=== PATIENT | male | born 1935 | race Caucasian/White ===

== ENCOUNTER 2016-09-13 14:08 | Inpatient (IN) | payer MEDICARE ==
[~2016-09-13] VITALS: Ht 175.3 cm; Wt 78.1 kg
[2016-09-14] MEDS ORDERED: VITA500T49 PO (11:31)
[2016-09-14] MEDS ORDERED: COQ-100C2 PO (11:31)
[2016-09-14] MEDS ORDERED: VITA10003 PO (11:31)
[2016-09-14] MEDS ORDERED: TAMS0.4C4 PO (11:31)
[2016-09-14] MEDS ORDERED: FISH120014 PO (11:31)
[2016-09-14] MEDS ORDERED: ASPI1TAB69 PO (11:31)
[2016-09-14] MEDS ORDERED: FOLI400T PO (11:31)
[2016-09-21] VITALS (8 sets, daily range): BP systolic 126–138; BP diastolic 59–68; PULSE 77–102; RESP 16–18; TEMP 97.4–98.5; O2SAT 97–98
--- NOTE | 2016-09-21 06:55 | PD.HP.UP ---
H&P Update Note The Pre-Admit History and Physical Examination regarding the above named patient was reviewed (including, but not limited to, vital signs, heart, lungs, co-morbid conditions), and upon re-examination it is noted that: the patient's condition has not significantly changed since the last examination. Ginna Franklin MD Sep 21, 2016 06:55
[2016-09-21] MEDS ORDERED: ceFAZolin 2 GM PREMIX 50 ML IV SCH (07:00)
[2016-09-21] MEDS ORDERED: METOPROLOL TARTRATE 25 MG TAB PO PRN (07:00)
[2016-09-21] MEDS ORDERED: DEXT 5%-NACL 0.9% 1000 ML INJ 1,000 ML IV SCH (07:00)
[2016-09-21] MEDS ORDERED: LACTATED RINGER'S 1000 ML IV SCH (07:00)
[2016-09-21] MEDS ORDERED: SODIUM CHLORID 0.9% 500 ML IV SCH (07:00)
[2016-09-21] MEDS ORDERED: METRONIDAZOLE 500 MG/100 ML ISONTONIC SOLN IV SCH (07:00)
[2016-09-21] MEDS ORDERED: INSULIN HUMAN REGULAR 1,000 UNITS/10 ML VIAL SQ PRN (07:00)
[2016-09-21] MEDS ORDERED: HEPARIN SODIUM - SQ 10,000 UNITS/ML VIAL SQ SCH (07:15)
[2016-09-21] MEDS ORDERED: ZANT150T2 PO (07:35)
[2016-09-21] MEDS ORDERED: MIDAZOLAM HCL 2 MG/2 ML VIAL ONE (08:36)
[2016-09-21] MEDS ORDERED: DEXAMETHASONE SOD PHOS 4 MG/ML VIAL ONE (08:36)
[2016-09-21] MEDS ORDERED: FAMOTIDINE 20 MG/2 ML VIAL ONE (08:36)
[2016-09-21] MEDS ORDERED: PHENYLEPH/NS 1000 MCG/10 ML SYR IV ONE (10:55)
[2016-09-21] MEDS ORDERED: PROPOFOL 200 MG/20 ML AMP IV ONE (10:55)
[2016-09-21] MEDS ORDERED: LACTATED RINGER'S 1000 ML INJ 4,000 ML IV ONE (10:55)
[2016-09-21] MEDS ORDERED: NEOSTIGMINE 3 MG/3 ML SYR IV ONE (10:55)
[2016-09-21] MEDS ORDERED: ePHEDrine/NS 50 MG/5 ML SYR IV ONE (10:55)
[2016-09-21] MEDS ORDERED: ONDANSETRON HCL 4 MG/2 ML VIAL IV PUSH ONE (10:55)
[2016-09-21] MEDS ORDERED: ceFAZolin INJ 1,000 MG VIAL IV ONE (13:35)
[2016-09-21] MEDS ORDERED: fentaNYL CITRATE 250 MCG/5 ML AMP ONE (15:18)
[2016-09-21] MEDS ORDERED: POTASSIUM CHLOR 20 MEQ PREMIX 100 ML IV PRN (16:15)
[2016-09-21] MEDS ORDERED: ENALAPRILAT 2.5 MG/2 ML VIAL IV PRN (16:15)
[2016-09-21] MEDS ORDERED: ACETAMINOPHEN/HYDROcodone 325 MG/5 MG TAB PO PRN ×2 (16:15)
[2016-09-21] MEDS ORDERED: KETOROLAC TROMETHAMINE 30 MG/ML (IVP) VIAL IVP PRN (16:15)
[2016-09-21] MEDS ORDERED: diphenhydrAMINE HCL 50 MG/ML VIAL IV PRN (16:15)
[2016-09-21] MEDS ORDERED: NALOXONE HCL 0.4 MG/ML AMP IV PRN ×2 (16:15)
[2016-09-21] MEDS ORDERED: POTASSIUM CHLOR 40 MEQ PREMIX 100 ML IV-CENTRAL PRN (16:15)
[2016-09-21] MEDS ORDERED: SODIUM CHLORIDE 0.9% FLUSH 5 ML FLUSH IVF PRN (16:15)
[2016-09-21] MEDS ORDERED: Post-op Orders (for Pharmacy) MISC XX ONE (16:15)
[2016-09-21] MEDS ORDERED: BENZOCAINE 6 MG/MENTHOL 10 MG LOZENGE SUCK-ON PRN (16:15)
[2016-09-21] MEDS ORDERED: ACETAMINOPHEN 325 MG TAB PO PRN (16:15)
[2016-09-21] MEDS ORDERED: MORPHINE SULFATE 4 MG/ML INJ ONE (16:27)
[2016-09-21 16:56] LABS: AUTOMATED NEUTROPHIL # 12.7 TH/MM3 (1.8-7.7); BASOPHIL % 0.1 % (0.0-2.0); HEMATOCRIT 37.2 % (39.0-51.0); HEMO FLAGS DIFF FINAL; LYMPH % 4.6 % (9.0-44.0); LYMPHOCYTE # 0.7 TH/MM3 (1.0-4.8); MEAN CELL VOLUME 85.3 FL (80.0-100.0); MONO % 6.9 % (0.0-8.0); NEUT % 88.4 % (16.0-70.0); PLATELET COUNT 183 TH/MM3 (150-450); RED BLOOD COUNT 4.36 MIL/MM3 (4.50-5.90); RED CELL DISTRIBUTION WIDTH 13.6 % (11.6-17.2); WHITE BLOOD COUNT 14.4 TH/MM3 (4.0-11.0)
[2016-09-21] MEDS ORDERED: DO NOT ADM ANY ANTICOAGULANT DRUGS XX PRN (17:00)
[2016-09-21] MEDS: D5-NS + KCL 20 MEQ INJ 1,000 ML IV SCH ×2 (17:08→23:40)
[2016-09-21] MEDS: PANTOPRAZOLE SODIUM 40 MG VIAL IVP SCH (17:10)
[2016-09-21] MEDS: HYDROmorphone HCL PCA 6 MG/30 ML IV SCH (17:12)
[2016-09-21 17:20] LABS: POTASSIUM 3.9 MEQ/L (3.5-5.1)
[2016-09-21] MEDS: metroNIDAZOLE 500 MG INJ 100 ML IV SCH (17:30)
[2016-09-21] MEDS: SODIUM CHLORIDE 0.9% FLUSH 5 ML FLUSH IVF SCH (21:00)
[2016-09-21] MEDS: PCA - TOTAL MG DILAUDID DELIVERED PER SHIFT OTHER SCH (22:00)
[2016-09-22] VITALS (26 sets, daily range): BP systolic 114–143; BP diastolic 56–69; PULSE 69–94; RESP 16–20; TEMP 97.8–99.4; O2SAT 92–100
[2016-09-22] MEDS: D5-NS + KCL 20 MEQ INJ 1,000 ML IV SCH ×3 (01:46→19:51)
[2016-09-22] MEDS: metroNIDAZOLE 500 MG INJ 100 ML IV SCH ×2 (01:46→10:30)
[2016-09-22] MEDS: ONDANSETRON HCL 4 MG/2 ML VIAL IV PRN (04:11)
[2016-09-22] MEDS: PCA - TOTAL MG DILAUDID DELIVERED PER SHIFT OTHER SCH ×3 (05:33→19:51)
[2016-09-22 06:30] LABS: BICARBONATE 28.2 MEQ/L (21.0-32.0)
[2016-09-22 06:40] LABS: AUTOMATED NEUTROPHIL # 7.7 TH/MM3 (1.8-7.7); BASOPHIL % 0.3 % (0.0-2.0); EOSINOPHIL % 0.1 % (0.0-4.0); HEMATOCRIT 35.8 % (39.0-51.0); HEMO FLAGS DIFF FINAL; LYMPH % 12.7 % (9.0-44.0); LYMPHOCYTE # 1.3 TH/MM3 (1.0-4.8); MEAN CELL VOLUME 86.4 FL (80.0-100.0); MEAN CORPUSCULAR HEMOGLOBIN 29.5 PG (27.0-34.0); MEAN CORPUSCULAR HGB CONC 34.1 % (32.0-36.0); MONO % 10.6 % (0.0-8.0); NEUT % 76.3 % (16.0-70.0); PLATELET COUNT 182 TH/MM3 (150-450); RED BLOOD COUNT 4.15 MIL/MM3 (4.50-5.90); WHITE BLOOD COUNT 10.1 TH/MM3 (4.0-11.0)
[2016-09-22] MEDS: PANTOPRAZOLE SODIUM 40 MG VIAL IVP SCH ×2 (08:12→19:50)
[2016-09-22] MEDS: SODIUM CHLORIDE 0.9% FLUSH 5 ML FLUSH IVF SCH ×2 (08:13→19:51)
--- NOTE | 2016-09-22 11:42 | HHI.PR ---
Subjective Remarks No N or V. No BMs. Left ureteral cath removed by me. Objective Vital Signs Date Time Temp Pulse Resp B/P Pulse Ox O2 Delivery O2 Flow Rate FiO2 09/22/16 07:30 16 09/22/16 07:27 99 Nasal Cannula 2.00 09/22/16 07:25 98.9 71 16 114/57 96 09/22/16 07:25 71 09/22/16 06:00 69 09/22/16 05:33 16 09/22/16 05:00 74 09/22/16 04:00 78 09/22/16 03:09 97.8 79 16 117/56 98 09/22/16 03:00 75 09/22/16 02:00 77 09/22/16 01:00 90 09/22/16 00:00 98.3 79 16 142/69 100 09/22/16 00:00 81 09/21/16 23:00 94 09/21/16 22:00 79 09/21/16 22:00 18 09/21/16 21:00 102 09/21/16 20:00 97.4 87 18 134/65 98 09/21/16 20:00 80 09/21/16 19:00 79 09/21/16 18:01 77 09/21/16 17:56 98.3 83 16 126/59 98 09/21/16 17:15 97.8 79 17 130/67 98 Nasal Cannula 3 09/21/16 17:12 16 09/21/16 17:00 74 17 126/62 98 Nasal Cannula 3 09/21/16 16:45 76 15 136/68 95 Nasal Cannula 3 09/21/16 16:30 82 15 129/68 95 Nasal Cannula 3 09/21/16 16:18 97.8 93 15 134/69 93 Nasal Cannula 3 I/O 09/21/16 09/21/16 09/21/16 09/22/16 09/22/16 09/22/16 07:00 15:00 23:00 07:00 15:00 23:00 Intake Total 4000 ml 1806 ml Output Total 950 ml 1330 ml Balance 3050 ml 476 ml Intake Oral 620 ml IV Total 500 ml 1186 ml Other 3500 ml Output Urine Total 850 ml 1150 ml Drainage Total 180 ml Estimated Blood Loss 100 ml # Bowel Movements 0 Result Diagram: 09/22/1632 09/22/1632 Objective Remarks Abd: moderate distention, probably secondary to CO2 I&Os and Labs:OK Medications and IVs Stable POD#1. Less hematuria To 7 North. FLD,Decrease IVs Juan Alberto Cabrales MD Sep 22, 2016 11:42
[2016-09-22] MEDS: HEPARIN SODIUM - SQ 10,000 UNITS/ML VIAL SQ SCH (16:15)
[2016-09-22] MEDS ORDERED: ALUMINUM/MAGNESIUM/SIMETH 30 ML CUP PO PRN (19:30)
--- NOTE | 2016-09-22 20:14 | MP ---
cc: PINO AVELAR MD DATE OF SURGERY 09/21/16 SURGEON Rosalia Avelar MD INDICATIONS FOR PROCEDURE Consulted intraoperatively to pass bilateral ureteral catheters to aid in visualization of this patient's ureters during his colorectal procedure. PROCEDURE IN DETAIL I proceeded with cystoscopy and placement of bilateral ureteral catheters as follows: Initially cystoscopic evaluation was performed utilizing the rigid cystoscope with the 22-Niuean sheath and 30 degree lens. The urethra was patent without stricture formation. The prostatic urethra was markedly obstructed with enlargement if the lateral lobes and significant enlargement to the median lobe. Further passage of the cystoscope within the urinary bladder revealed the bladder to be markedly trabeculated with diverticula and cellule formation. I did attempt to identify the source of the fistula tract. There was a questionable site noted involving the dome of the bladder just to the left of the midline. However, I could not ascertain that this was the fistula site with certainty. Next, I proceeded with placing bilateral ureteral catheters. Initially, the left ureteral orifice was identified. A sensor 0.035 wire was advanced up the patient's left ureter until some resistance was felt. A 6-Niuean open-ended catheter was then advanced in a cephalad direction 25 cm. With the catheter in place, the guidewire was withdrawn and reintroduced through a secondary site via the cystoscope. In similar fashion, the contralateral side was accomplished. With both catheters in place, the bladder was drained of all irrigant fluid. The wire and cystoscope were withdrawn. A 16-Niuean 10 mL Olmedo catheter was then placed and both ureteral catheters were anchored to the Olmedo via a connector. All three catheters were then placed to gravity drainage. The patient tolerated the procedures without complications. Pino Avelar MD BPS/ /10:25 AM /8:01 PM
[2016-09-23] MEDS: D5-NS + KCL 20 MEQ INJ 1,000 ML IV SCH ×3 (03:09→21:16)
[2016-09-23] MEDS: HEPARIN SODIUM - SQ 10,000 UNITS/ML VIAL SQ SCH ×2 (03:09→15:08)
[2016-09-23] MEDS: HYDROmorphone HCL PCA 6 MG/30 ML IV SCH (03:11)
[2016-09-23 03:18] VITALS: BP 157/83; PULSE 82; RESP 18; TEMP 97.9; O2SAT 95
[2016-09-23] MEDS: PCA - TOTAL MG DILAUDID DELIVERED PER SHIFT OTHER SCH ×3 (04:13→22:00)
[2016-09-23 04:46] LABS: BICARBONATE 27.4 MEQ/L (21.0-32.0); POTASSIUM 3.7 MEQ/L (3.5-5.1)
[2016-09-23 04:54] LABS: AUTOMATED NEUTROPHIL # 8.9 TH/MM3 (1.8-7.7); BASOPHIL % 0.2 % (0.0-2.0); EOSINOPHIL % 0.1 % (0.0-4.0); HEMATOCRIT 37.3 % (39.0-51.0); HEMO FLAGS DIFF FINAL; LYMPH % 11.2 % (9.0-44.0); LYMPHOCYTE # 1.2 TH/MM3 (1.0-4.8); MEAN CORPUSCULAR HEMOGLOBIN 29.1 PG (27.0-34.0); MEAN CORPUSCULAR HGB CONC 33.8 % (32.0-36.0); MONO % 8.8 % (0.0-8.0); NEUT % 79.7 % (16.0-70.0); PLATELET COUNT 187 TH/MM3 (150-450); RED BLOOD COUNT 4.34 MIL/MM3 (4.50-5.90); RED CELL DISTRIBUTION WIDTH 13.8 % (11.6-17.2); WHITE BLOOD COUNT 11.2 TH/MM3 (4.0-11.0)
--- NOTE | 2016-09-23 06:09 | MP ---
cc: LILLY WRIGHT M.D., RENEE MERRELL, MATTHEW M. M.D. DATE OF SURGERY: 09/21/2016 PREOPERATIVE DIAGNOSIS: Colovesical fistula. Diverticulitis. POSTOPERATIVE DIAGNOSIS: Colovesical fistula. Diverticulitis. Adhesions. SURGEON: Lilly Wright MD. MENAGERIE CARETAKER: Marilu OPERATION 1. Robotic lysis of adhesions. 2. Robotic takedown of splenic flexure. 3. Robotic low anterior resection. ANESTHESIA General per ET tube ESTIMATED BLOOD LOSS 100 cc OPERATIVE INDICATIONS The patient is a 81-year-old male with symptomatic colovesical fistula. OPERATIVE FINDINGS Liver appeared normal. The proximal sigmoid colon was adherent to the dome of the bladder, with an obvious fistula upon dissection. He had multiple diverticula all through his descending colon as well, necessitating a larger than typical resection in order to get clean bowel to perform our anastomosis. OPERATIVE REPORT The patient was brought to the operating room, and placed in the supine position. After induction of general anesthesia, the patient was placed in Flavio stirrups and all bony prominences were carefully padded. The skin of the anterior abdominal wall, as well as the perineal area, was then prepped and draped in the usual sterile fashion. Dr. Avelar then came in and performed cystoscopy with placement of bilateral ureteral catheters, please see his operative note for details. Of note, he did have some problem getting through some fairly significant prostatic hypertrophy and there was ongoing bleeding from the Olmedo throughout the case. A site was then chosen for the camera, being located 2 cm to the right and above the umbilicus. A 10/12 trocar was placed at this site under direct vision using the laparoscope. CO2 insufflation was then undertaken. A brief abdominal survey was performed. The sigmoid colon was noted to be adherent to the bladder at the presumed site of the fistula. The remainder of the colon showed no visible abnormalities. He did have some ectatic vessels. There was nothing else visibly abnormal. The remainder of the ports were then placed as follows: the #1 port, a 10/12, was placed just inside the right anterior superior iliac spine, and an assist port was placed equal distance between the #1 and the camera port, just under the right costal margin. The #3, a Da Dano port, was placed in line with the umbilicus in the left anterior axillary line, and the #2 port was placed two fingerbreadths above the umbilical line, in the left midclavicular line. The patient was hydroplaned with head down and slightly to the right, and the small bowel was brought up and out of the pelvis and to the right. The sigmoid colon was retracted down and to the left. A window was made in the peritoneum. Dissection was continued in this plane posterior to the vessels until the left ureter was clearly identified and swept away from the specimen. Dissection continued laterally until we reached the level of the pelvic sidewall. A window was then made cephalad to the vessels and the vessels were dissected free circumferentially. A white load of echelon Endo stapler was then placed across the vasculature. This was closed, held for 30 seconds, fired and removed. Dissection then continued posterior to the rectum, down to the level of the mid rectum. The sigmoid colon was then carefully dissected free from the lateral pelvic sidewall using electrocautery, until we had nice mobility of the sigmoid, proximal rectum and distal descending colon. At this point I felt that I had enough length to come down into the pelvis. A sponge stick was then placed into the rectum, and a site was chosen for the division of the rectum on the upper rectum. The mesentery at this level was divided using the harmonic scalpel and an echelon Endo stapler was placed across the bowel at this level. This was closed, held for 30 seconds fired and removed. The proximal bowel came down nicely to the rectal stump, and we proceeded with the open portion of the procedure. The robot was undocked. A 12 to 15 cm transverse incision was made in the suprapubic area. Using electrocautery, dissection was carried down to the fascia of the anterior abdominal wall, which was split. The medial fibers of the rectus abdominis muscle were then divided. Using electrocautery, the posterior fascia/peritoneum was then opened the length of the skin incision. The 33 EEA stapler was attempted to be advanced through the rectal stump, but there was an area of tightness we could not get it through, so we did dissect back an additional 3-4 cm and repeated the stapler, removing an additional 3-4 cm. After placing the wound protector the more distal portion of the bowel was then removed. At this point the stapler was then placed in the anus and advanced to the rectal stump. It did come nicely but I noticed that there was a small tear and I decided that just proximal to the staple line, we needed to go with the smaller stapler and go back an additional 3-4 cm. The proximal stapled end of the bowel was grasped and pulled out through the wound protector. A site was then chosen for proximal division of the bowel. The mesentery at this level was divided and ligated using 0-Vicryl ties, and the pursestring stapling device was placed across the bowel at this level. The distal bowel was amputated, and taken to the back table where it was later opened and diverticulitis was confirmed. Unfortunately upon examining the proximal bowel, he had multiple diverticuli throughout, making it very difficult to find an area that would be appropriate for anastomosis. After evaluating the remainder of the bowel, I did see that another 4-5 cm proximal to this there was some bowel with a less diverticuli. Unfortunately, taking this additional length of bowel would make it so that we did not have enough length for tension-free anastomosis, so I elected to reset the robot. The robot was docked again and the splenic flexure was then dissected free using electrocautery, until we had adequate length of bowel. While the robot was docked, we also dissected down past the small tear on the rectum to allow the more distal division of the rectum. At this point we were lower than the peritoneal reflection. The robot was again undocked and the contour stapler was placed across the distal rectum just distal to the previous small tear and the small rim of tissue was removed. A site was chosen for proximal division of the bowel, about 8 cm proximal to the previous resection margin. The mesentery at this level was then divided and ligated using 0 Vicryl ties and a second pursestring stapling device was sutured across the bowel at this level. The bowel was amputated and the anvil from the 29 EEA stapler was then placed into the cut of the bowel. The previously placed pursestring suture was secured. One small diverticulum needed to be sutured up around the shaft of the stapler but otherwise the bowel looked healthy and appropriate for anastomosis. The 29 EEA stapler was advanced through the rectum up to rectal stump without difficulty. The spike was advanced posterior to the staple line. The anvil was then into the spike, being careful that the bowel was not twisted. The stapler was then closed, held for 30 seconds, fired, and removed. A small amount of warm normal saline was placed in the pelvis. The proximal bowel was occluded with digital pressure. Air was insufflated to the extent possible into the rectum with no sign of any leakage noted. The air was desufflated to the extent possible, and the saline was suctioned out of the pelvis. A EBONY drain was placed through the left lower quadrant trocar site and into the pelvis. This was secured using 3-0 nylon. The anastomosis lay nicely without tension in a nice orientation. The posterior fascia of the suprapubic incision was closed in a running fashion using #1 PDS and the anterior fascia was closed in running fashion using #1 PDS. The wound was then occluded with Opsite and CO2 insufflation was resumed. The 10/12 trocar sites in the right lower quadrant and umbilical area were then closed using the cross-bow closure device and 0 Vicryl suture. The wounds were copiously irrigated with warm normal saline. The skin at the suprapubic incision was closed in a subcuticular fashion using 3-0 Vicryl and the skin at the trocar sites were closed using interrupted subcuticular fashion using 3-0 Vicryl. Steri-Strips and sterile dressing was then applied. All sponge, needle and instrument counts were correct, and the patient was returned to the Post-Anesthesia Care Unit in stable condition. MD LALY Mitchell/FLOYD /4:16 PM /5:35 AM [place]
[2016-09-23 07:10] VITALS: BP 173/81; PULSE 81; RESP 20; TEMP 97.7; O2SAT 94
[2016-09-23] MEDS: PANTOPRAZOLE SODIUM 40 MG VIAL IVP SCH ×2 (07:56→22:48)
[2016-09-23] MEDS: SODIUM CHLORIDE 0.9% FLUSH 5 ML FLUSH IVF SCH ×2 (07:59→22:48)
[2016-09-23] MEDS: ONDANSETRON HCL 4 MG/2 ML VIAL IV PRN (08:39)
--- NOTE | 2016-09-23 10:48 | HHI.PR ---
Subjective Remarks Nausea and distention. Small bloody BM yesterday Objective Vital Signs Date Time Temp Pulse Resp B/P Pulse Ox O2 Delivery O2 Flow Rate FiO2 09/23/16 07:10 94 Room Air 09/23/16 07:10 20 09/23/16 07:10 97.7 81 20 173/81 94 09/23/16 04:13 18 09/23/16 03:18 97.9 82 18 157/83 95 09/23/16 03:11 18 09/22/16 23:07 98.8 86 20 143/67 94 09/22/16 20:00 99.4 86 18 130/67 92 09/22/16 20:00 Room Air 09/22/16 19:51 16 09/22/16 18:00 82 09/22/16 17:00 80 09/22/16 16:00 81 09/22/16 15:50 98.2 77 20 123/69 94 09/22/16 15:00 85 09/22/16 14:00 18 09/22/16 14:00 89 09/22/16 14:00 18 09/22/16 13:00 94 09/22/16 12:00 79 09/22/16 11:30 98.4 79 18 97 09/22/16 11:00 79 I/O 09/22/16 09/22/16 09/22/16 09/23/16 09/23/16 09/23/16 07:00 15:00 23:00 07:00 15:00 23:00 Intake Total 1806 ml 1770 ml 1371 ml Output Total 1330 ml 1395 ml 990 ml Balance 476 ml 375 ml 381 ml Intake Oral 620 ml 425 ml 120 ml IV Total 1186 ml 1345 ml 1251 ml Output Urine Total 1150 ml 1350 ml 950 ml Drainage Total 180 ml 45 ml 40 ml # Bowel Movements 0 0 0 Result Diagram: 09/23/16 0400 09/23/16 0400 Objective Remarks Abd: moderate distention, and tympany I&Os and Labs:OK Assessment and Plan Assessment and Plan Nausea and distention POD#[address] N/G. NPO IVs. Remove R ureteral catheter Juan Alberto Cabrales MD Sep 23, 2016 10:48
[2016-09-23 11:45] VITALS: BP 166/79; PULSE 89; RESP 20; TEMP 99.1; O2SAT 93
[2016-09-23 16:00] VITALS: BP 177/84; PULSE 92; RESP 18; TEMP 99.4; O2SAT 95
[2016-09-23 20:19] VITALS: RESP 18
[2016-09-24] VITALS: BP 142/69; PULSE 85; RESP 18; TEMP 99.7; O2SAT 94
[2016-09-24] MEDS: HEPARIN SODIUM - SQ 10,000 UNITS/ML VIAL SQ SCH ×2 (04:38→14:11)
[2016-09-24] MEDS: PCA - TOTAL MG DILAUDID DELIVERED PER SHIFT OTHER SCH ×3 (04:51→22:00)
[2016-09-24] MEDS: D5-NS + KCL 20 MEQ INJ 1,000 ML IV SCH ×3 (04:51→20:47)
[2016-09-24 05:14] LABS: AUTOMATED NEUTROPHIL # 6.7 TH/MM3 (1.8-7.7); BASOPHIL % 0.5 % (0.0-2.0); EOSINOPHIL % 0.4 % (0.0-4.0); HEMATOCRIT 34.2 % (39.0-51.0); HEMO FLAGS DIFF FINAL; LYMPH % 15.8 % (9.0-44.0); LYMPHOCYTE # 1.5 TH/MM3 (1.0-4.8); MEAN CORPUSCULAR HGB CONC 33.7 % (32.0-36.0); MONO % 10.2 % (0.0-8.0); NEUT % 73.1 % (16.0-70.0); PLATELET COUNT 190 TH/MM3 (150-450); RED BLOOD COUNT 3.98 MIL/MM3 (4.50-5.90); RED CELL DISTRIBUTION WIDTH 13.9 % (11.6-17.2); WHITE BLOOD COUNT 9.2 TH/MM3 (4.0-11.0)
[2016-09-24 05:33] LABS: BICARBONATE 28.3 MEQ/L (21.0-32.0); POTASSIUM 3.5 MEQ/L (3.5-5.1)
[2016-09-24 08:00] VITALS: BP 155/76; PULSE 76; RESP 17; TEMP 99; O2SAT 94
[2016-09-24] MEDS: PANTOPRAZOLE SODIUM 40 MG VIAL IVP SCH ×2 (08:24→20:47)
[2016-09-24] MEDS: SODIUM CHLORIDE 0.9% FLUSH 5 ML FLUSH IVF SCH ×2 (08:32→21:00)
--- NOTE | 2016-09-24 09:09 | HHI.PR ---
Subjective . Saw pt in halls walking. Stooling. Wants N/G and amada out. Objective . Abd: sl less distended. Assessment/Plan . POD#3 Will D/C N/G and Amada and d/w Dr Franklin. Juan Alberto Cabrales MD Sep 24, 2016 09:09
[2016-09-24 12:00] VITALS: BP 178/80; PULSE 76; RESP 18; TEMP 96.3; O2SAT 96
[2016-09-24 16:00] VITALS: BP 171/84; PULSE 74; RESP 18; TEMP 98.5; O2SAT 95
[2016-09-24] MEDS: ENALAPRILAT 1.25 MG/ML VIAL IV PRN (16:37)
--- NOTE | 2016-09-24 17:49 | HHI.PR ---
Subjective Remarks POD#3 s/p LAR, TAMMY for diverticulitis with CV fistula Comfortable, some heartburn, passing liquid stool Objective Vital Signs Date Time Temp Pulse Resp B/P Pulse Ox O2 Delivery O2 Flow Rate FiO2 09/24/16 16:00 98.5 74 18 171/84 95 09/24/16 12:00 96.3 76 18 178/80 96 09/24/16 08:00 99.0 76 17 155/76 94 09/24/16 04:51 18 09/24/16 00:00 99.7 85 18 142/69 94 09/23/16 22:00 18 09/23/16 20:19 18 I/O 09/23/16 09/23/16 09/23/16 09/24/16 09/24/16 09/24/16 07:00 15:00 23:00 07:00 15:00 23:00 Intake Total 1371 ml 1578 ml 462 ml 400 ml 726 ml Output Total 990 ml 690 ml 760 ml 480 ml 500 ml Balance 381 ml 888 ml -298 ml -80 ml 226 ml Intake Oral 120 ml 0 ml 0 ml 0 ml IV Total 1251 ml 1578 ml 462 ml 400 ml 726 ml Output Urine Total 950 ml 600 ml 600 ml 400 ml 400 ml Gastric Drainage Total 100 ml 50 ml 50 ml Drainage Total 40 ml 90 ml 60 ml 30 ml 50 ml Bladder Scan Volume Amount 339 ml # Bowel Movements 0 0 0 0 0 Result Diagram: 09/24/1641109/24/16411 Objective Remarks Soft, moderately distended Wounds clean EBONY serous Assessment and Plan Assessment and Plan Difficulty urinating - replace ybarra Hold on sips only, until bloating improves D/C Ginna Caicedo MD Sep 24, 2016 17:49
[2016-09-24 20:00] VITALS: BP 161/76; PULSE 81; RESP 20; TEMP 97.4; O2SAT 94
[2016-09-25] VITALS: BP 160/77; PULSE 82; RESP 20; TEMP 100.9; O2SAT 93
[2016-09-25] MEDS: ENALAPRILAT 1.25 MG/ML VIAL IV PRN (00:06)
[2016-09-25 01:00] VITALS: BP 147/71
[2016-09-25] MEDS: D5-NS + KCL 20 MEQ INJ 1,000 ML IV SCH ×3 (05:16→20:37)
[2016-09-25] MEDS: HEPARIN SODIUM - SQ 10,000 UNITS/ML VIAL SQ SCH ×2 (05:48→15:02)
[2016-09-25] MEDS: PCA - TOTAL MG DILAUDID DELIVERED PER SHIFT OTHER SCH ×3 (05:49→20:38)
[2016-09-25 08:00] VITALS: BP 120/68; PULSE 75; RESP 17; TEMP 99; O2SAT 93
[2016-09-25] MEDS: PANTOPRAZOLE SODIUM 40 MG VIAL IVP SCH ×2 (08:10→20:37)
[2016-09-25] MEDS: SODIUM CHLORIDE 0.9% FLUSH 5 ML FLUSH IVF SCH ×2 (08:10→20:37)
[2016-09-25 12:00] VITALS: BP 126/69; PULSE 73; RESP 17; TEMP 97.9; O2SAT 95
[2016-09-25 16:00] VITALS: BP 135/77; PULSE 76; RESP 17; TEMP 99.5; O2SAT 94
--- NOTE | 2016-09-25 18:21 | HHI.PR ---
Subjective Remarks POD#4 s/p LAR, TAMMY for diverticulitis with CV fistula Comfortable, less heartburn, passing pellet like stool Objective Vital Signs Date Time Temp Pulse Resp B/P Pulse Ox O2 Delivery O2 Flow Rate FiO2 09/25/16 16:00 99.5 76 17 135/77 94 09/25/16 12:00 97.9 73 17 126/69 95 09/25/16 08:00 99.0 75 17 120/68 93 09/25/16 05:49 16 09/25/16 01:00 147/71 09/25/16 00:00 100.9 82 20 160/77 93 09/24/16 22:00 17 09/24/16 20:00 97.4 81 20 161/76 94 I/O 09/24/16 09/24/16 09/24/16 09/25/16 09/25/16 09/25/16 07:00 15:00 23:00 07:00 15:00 23:00 Intake Total 400 ml 726 ml 120 ml 120 ml 1890 ml Output Total 480 ml 500 ml 400 ml 600 ml Balance -80 ml 226 ml -280 ml -480 ml 1890 ml Intake Oral 0 ml 120 ml 120 ml IV Total 400 ml 726 ml 1890 ml Output Urine Total 400 ml 400 ml 400 ml 600 ml Gastric Drainage Total 50 ml 50 ml Drainage Total 30 ml 50 ml Bladder Scan Volume Amount 339 ml # Bowel Movements 0 0 Result Diagram: 09/24/1641109/24/16411 Objective Remarks Softer, less distension Wounds clean Assessment and Plan Assessment and Plan Unable to place ybarra, urinating well today Advance to full liquids tomorrow Ginna Franklin MD Sep 25, 2016 18:21
[2016-09-25 20:00] VITALS: BP 139/73; PULSE 75; RESP 18; TEMP 98.9; O2SAT 93
[2016-09-26] VITALS: BP 163/78; PULSE 81; RESP 17; TEMP 98.9; O2SAT 95
[2016-09-26] MEDS: ENALAPRILAT 1.25 MG/ML VIAL IV PRN (00:37)
[2016-09-26 01:35] VITALS: BP 149/62
[2016-09-26] MEDS: HEPARIN SODIUM - SQ 10,000 UNITS/ML VIAL SQ SCH ×2 (03:50→14:25)
[2016-09-26] MEDS: D5-NS + KCL 20 MEQ INJ 1,000 ML IV SCH (03:51)
[2016-09-26] MEDS: PCA - TOTAL MG DILAUDID DELIVERED PER SHIFT OTHER SCH (03:51)
[2016-09-26 08:00] VITALS: BP 152/90; PULSE 79; RESP 19; TEMP 98.6; O2SAT 95
[2016-09-26] MEDS: PANTOPRAZOLE SODIUM 40 MG VIAL IVP SCH (08:40)
[2016-09-26] MEDS: SODIUM CHLORIDE 0.9% FLUSH 5 ML FLUSH IVF SCH ×2 (08:46→20:53)
[2016-09-26 12:00] VITALS: BP 142/79; PULSE 75; RESP 18; TEMP 98.6; O2SAT 96
--- NOTE | 2016-09-26 13:28 | HHI.PR ---
Subjective Remarks POD#5 s/p LAR, TAMMY for diverticulitis with CV fistula Comfortable Objective Vital Signs Date Time Temp Pulse Resp B/P Pulse Ox O2 Delivery O2 Flow Rate FiO2 09/26/16 12:00 98.6 75 18 142/79 96 09/26/16 08:00 98.6 79 19 152/90 95 09/26/16 03:51 16 09/26/16 01:35 149/62 09/26/16 00:00 98.9 81 17 163/78 95 09/25/16 20:38 18 09/25/16 20:00 98.9 75 18 139/73 93 09/25/16 16:00 99.5 76 17 135/77 94 I/O 09/25/16 09/25/16 09/25/16 09/26/16 09/26/16 09/26/16 07:00 15:00 23:00 07:00 15:00 23:00 Intake Total 120 ml 1890 ml 480 ml 1622 ml 120 ml Output Total 600 ml 850 ml 650 ml 550 ml Balance -480 ml 1040 ml -170 ml 1072 ml 120 ml Intake Oral 120 ml 0 ml 480 ml 240 ml 120 ml IV Total 1890 ml 1382 ml Output Urine Total 600 ml 850 ml 650 ml 460 ml Stool Total 90 ml # Voids 3 # Bowel Movements 0 3 2 Result Diagram: 09/24/1641109/24/16411 Objective Remarks Softer, less distension Wounds clean Assessment and Plan Assessment and Plan Full liquids Decrease IVF Ginna Franklin MD Sep 26, 2016 13:28
[2016-09-26] MEDS: FAMOTIDINE 20 MG TAB PO SCH ×2 (14:25→20:53)
[2016-09-26 16:00] VITALS: BP 160/80; PULSE 76; RESP 18; TEMP 95.5; O2SAT 95
[2016-09-26] MEDS: FUROSEMIDE 20 MG/2 ML VIAL IV PUSH SCH (17:16)
[2016-09-26 20:00] VITALS: BP 147/71; PULSE 78; RESP 19; TEMP 97.6; O2SAT 96
[2016-09-26] MEDS: TAMSULOSIN HCL 0.4 MG CAP PO SCH (20:53)
[2016-09-27] VITALS: BP 137/73; PULSE 72; RESP 18; TEMP 98.6; O2SAT 96
[2016-09-27] MEDS: HEPARIN SODIUM - SQ 10,000 UNITS/ML VIAL SQ SCH ×2 (05:45→16:24)
[2016-09-27] MEDS: FUROSEMIDE 20 MG/2 ML VIAL IV PUSH SCH ×2 (08:26→16:25)
[2016-09-27] MEDS: FAMOTIDINE 20 MG TAB PO SCH ×2 (08:26→19:49)
[2016-09-27] MEDS: SODIUM CHLORIDE 0.9% FLUSH 5 ML FLUSH IVF SCH ×2 (08:27→19:49)
[2016-09-27 09:01] VITALS: BP 167/77; PULSE 80; RESP 18; TEMP 98.5; O2SAT 97
[2016-09-27 12:30] VITALS: BP 125/62; PULSE 73; RESP 18; TEMP 97.3; O2SAT 92
[2016-09-27] MEDS: D5-NS + KCL 20 MEQ INJ 1,000 ML IV SCH ×2 (13:06→16:29)
[2016-09-27 16:54] VITALS: BP 144/69; PULSE 74; RESP 19; TEMP 98.6; O2SAT 99
[2016-09-27] MEDS: TAMSULOSIN HCL 0.4 MG CAP PO SCH (19:49)
[2016-09-27 20:00] VITALS: BP 138/66; PULSE 77; RESP 17; TEMP 98.4; O2SAT 96
[2016-09-28] VITALS: BP 135/66; PULSE 77; RESP 17; TEMP 98.7; O2SAT 95
[2016-09-28] MEDS: HEPARIN SODIUM - SQ 10,000 UNITS/ML VIAL SQ SCH (04:54)
[2016-09-28 08:00] VITALS: BP 158/79; PULSE 85; RESP 17; TEMP 98.7; O2SAT 96
[2016-09-28] MEDS: FAMOTIDINE 20 MG TAB PO SCH (08:31)
[2016-09-28] MEDS: FUROSEMIDE 20 MG/2 ML VIAL IV PUSH SCH (08:31)
[2016-09-28] MEDS: SODIUM CHLORIDE 0.9% FLUSH 5 ML FLUSH IVF SCH (08:31)
[2016-09-28 12:00] VITALS: BP 131/63; PULSE 72; RESP 17; TEMP 98.3; O2SAT 96
[2016-09-28] MEDS ORDERED: HYDR-3516 PO (12:34)
--- NOTE | 2016-09-28 13:22 | HHI.PR ---
Subjective Remarks POD#6 s/p LAR, TAMMY for diverticulitis with CV fistula Comfortable Objective Vital Signs Date Time Temp Pulse Resp B/P Pulse Ox O2 Delivery O2 Flow Rate FiO2 09/28/16 12:00 98.3 72 17 131/63 96 09/28/16 08:00 98.7 85 17 158/79 96 09/28/16 00:00 98.7 77 17 135/66 95 09/27/16 20:00 98.4 77 17 138/66 96 09/27/16 16:54 98.6 74 19 144/69 99 I/O 09/27/16 09/27/16 09/27/16 09/28/16 09/28/16 09/28/16 07:00 15:00 23:00 07:00 15:00 23:00 Intake Total 503 ml 795 ml 493 ml Output Total 1200 ml 1300 ml 500 ml Balance -697 ml -505 ml -7 ml Intake Oral 240 ml 480 ml 240 ml IV Total 263 ml 315 ml 253 ml Output Urine Total 1200 ml 1300 ml 500 ml # Bowel Movements 0 2 Result Diagram: 09/24/16 0412 09/24/16 0412 Objective Remarks Soft, nondistended Wounds clean Assessment and Plan Assessment and Plan Tolerating regular diet Home today Ginna Franklin MD Sep 28, 2016 13:22
--- NOTE | 2016-10-06 21:56 | MD ---
cc: LILLY WRIGHT M.D. ADMISSION DATE: 09/21/2016 DISCHARGE DATE: 09/28/2016 ADMISSION DIAGNOSIS Colovesical fistula. DISCHARGE DIAGNOSIS Colovesical fistula with adhesions PROCEDURES 1. Cystoscopy with placement of bilateral ureteral catheters. 2. Robotic lysis of adhesions. 3. Robotic takedown OF splenic flexure. 4. Robotic low anterior resection. HOSPITAL COURSE The patient is a 81-year-old male with symptomatic colovesical fistula. He was admitted to the hospital on the September after an outpatient bowel prep. He was taken to the operating room where he underwent the above-named procedure. Postoperatively, he did have some short-term ileus but this gradually cleared. Eventually his bowel, bladder function returned and he was discharged to home on postoperative day #6 with instructions to follow-up with myself in the office. MD LALY Mitchell/ /12:39 PM /9:51 PM MTDD
== END 2016-09-28 14:15 | disposition home or self-care (01) | DRG 982 ==
LOC: HSDI 09-21 06:34 → EDUNIT# 09-21 08:30 → HCPC 09-21 17:43 → N07B 09-23 13:45
PROVIDERS: ADMIT Colon & Rectal Surgery; ATTEND Colon & Rectal Surgery
PROC: 8E0W4CZ Robotic Assisted Procedure of Trunk Region, Percutaneous Endoscopic Approach (ICD-10-PCS; 2016-09-21)
PROC: 0DBN4ZZ Excision of Sigmoid Colon, Percutaneous Endoscopic Approach (ICD-10-PCS; principal; 2016-09-21 08:40)
PROC: 0T788DZ Dilation of Bilateral Ureters with Intraluminal Device, Via Natural or Artificial Opening Endoscopic (ICD-10-PCS; 2016-09-21 08:40)
DX: N32.1 Vesicointestinal fistula (principal); K57.32 Diverticulitis of large intestine without perforation or abscess without bleeding; N40.0 Benign prostatic hyperplasia without lower urinary tract symptoms; R11.0 Nausea; R39.198 Other difficulties with micturition; R12 Heartburn
CPT/HCPCS: 80048; 85025; 86850; 86900; 86901; 88307; 94150; C1769; C9113; J0690; J1100; J1170; J1644; J1940; J2250; J2270; J2370; J2405; J2710; J3010; J3480; J7120

== ENCOUNTER → 2016-09-14 | Outpatient (CLI) | payer MEDICARE ==
[~2016-09-14] MED LIST: ASPI1TAB69 PO; COQ-100C2 PO; FISH120014 PO; FOLI400T PO; HYDR-3516 PO; TAMS0.4C4 PO; VITA10003 PO; VITA500T49 PO; ZANT150T2 PO
[2016-09-14 10:02] LABS: BACTERIA, URINE RARE /hpf; BLOOD, URINE NEG (NEG); COMMENT (UR) CULTURE INDICATED; CULTURE IF INDICATED CULTURE INDICATED; GLUCOSE,URINE NEG (NEG); KETONE, URINE NEG (NEG); MUCUS URINE FEW /lpf (OCC); NITRITE,URINE NEG (NEG); URINE COLOR YELLOW (YELLW/STRAW)
[2016-09-14 10:04] LABS: AUTOMATED NEUTROPHIL # 3.6 TH/MM3 (1.8-7.7); BASOPHIL % 0.8 % (0.0-2.0); EOSINOPHIL # 0.5 TH/MM3 (0-0.4); EOSINOPHIL % 7.2 % (0.0-4.0); HEMO FLAGS DIFF FINAL; LYMPH % 28.2 % (9.0-44.0); LYMPHOCYTE # 1.9 TH/MM3 (1.0-4.8); MEAN CORPUSCULAR HEMOGLOBIN 29.9 PG (27.0-34.0); MEAN CORPUSCULAR HGB CONC 35.2 % (32.0-36.0); MONO % 9.6 % (0.0-8.0); NEUT % 54.2 % (16.0-70.0); PLATELET COUNT 201 TH/MM3 (150-450); RED BLOOD COUNT 4.82 MIL/MM3 (4.50-5.90); RED CELL DISTRIBUTION WIDTH 13.6 % (11.6-17.2); WHITE BLOOD COUNT 6.6 TH/MM3 (4.0-11.0)
[2016-09-14 10:11] LABS: APTT (PATIENT) 28.2 SEC (24.3-30.1)
[2016-09-14 10:21] LABS: ALKALINE PHOSPHATASE 68 U/L (45-117); ALT (GPT) 32 U/L (12-78); ANION GAP 8 MEQ/L (5-15); AST (GOT) 20 U/L (15-37); BLOOD UREA NITROGEN 14 MG/DL (7-18); CHLORIDE 100 MEQ/L (98-107); GLOMERULAR FILTRATION RATE 71 ML/MIN (>89); GLUCOSE,FASTING 97 MG/DL (74-99); POTASSIUM 4.1 MEQ/L (3.5-5.1); SODIUM (NA) 138 MEQ/L (136-145); TOTAL BILIRUBIN ADULT 0.8 MG/DL (0.2-1.0)
--- NOTE | 2016-09-14 13:16 | RADRPT ---
EXAM DATE/TIME: 09/14/2016 10:21 [place] COMPARISON: No previous studies available for comparison. INDICATIONS : Evaluate for pneumonia, penumothorax, or communicable disease. Pre op for robot assisted laparoscopic sigmoid resection. MEDICAL HISTORY : None. SURGICAL HISTORY : None. ENCOUNTER: Initial ACUITY: 1 day PAIN SCORE: 0/10 LOCATION: chest FINDINGS: PA and lateral views of the chest demonstrate the lungs to be symmetrically aerated without evidence of mass, infiltrate or effusion. The cardiomediastinal contours are unremarkable. Osseous structure s are intact. CONCLUSION: 1. No active disease. Trey Valentin MD on September 14, 2016 at 13:10 Board Certified Radiologist. This report was verified electronically.
--- NOTE | 2016-09-14 14:27 | EKG ---
Date Performed: 09/14/2016 Time Performed: 09:39:54 PTAGE: 81 years EKG: SINUS BRADYCARDIA INCOMPLETE RIGHT BUNDLE BRANCH BLOCK MODERATE ST DEPRESSION ABNORMAL ECG NO PREVIOUS TRACING DOCTOR: Leigh Ann Alfonso Interpretating Date/Time 09/14/2016 14:22:15
== END ==
LOC: CPRE 09:10
PROVIDERS: ATTEND Colon & Rectal Surgery
DX: Z01.810 Encounter for preprocedural cardiovascular examination (principal); Z01.811 Encounter for preprocedural respiratory examination; Z01.812 Encounter for preprocedural laboratory examination; N32.1 Vesicointestinal fistula
CPT/HCPCS: 36415; 71020; 80053; 81001; 85025; 85610; 85730; 87077; 87086; 87186; 93005